=== PATIENT | male | born 1950 | race African-American/Black ===

== ENCOUNTER 2021-11-15 11:54 | Emergency (ER) | payer OTHER ==
[2021-11-15 12:44] VITALS: BP 122/73; PULSE 60; RESP 20; TEMP 97.7; BMI 21.2
== END 2021-11-15 15:10 | disposition home or self-care (01) ==
LOC: JERFT 11:54
DX: M25.552 Pain in left hip (principal); W19.XXXA Unspecified fall, initial encounter
CPT/HCPCS: 99282-25